=== PATIENT | male | born 1960 | race Two or more races ===

== ENCOUNTER 2024-07-23 09:41 | Emergency (ER) | payer OTHER ==
[~2024-07-23] VITALS: Ht 162.6 cm; Wt 65.8 kg
[2024-07-23] MEDS ORDERED: LIPITOR20 MG PO (09:43)
[2024-07-23] MEDS ORDERED: ALTACE2.5 MG (09:43)
[2024-07-23 09:45] VITALS: BP 148/86; O2SAT 96
[2024-07-23] MEDS ORDERED: KETOROLAC TROMETHAMINE 60 MG VIAL IM ONE (10:15)
[2024-07-23] MEDS ORDERED: BENZONATATE 200 MG CAPSULE PO ONE (10:15)
[2024-07-23] MEDS ORDERED: LEVALBUTER0.63 MG/3 IH (11:42)
[2024-07-23] MEDS ORDERED: PROAIR RESPICL90 MCG IH (11:42)
[2024-07-23] MEDS ORDERED: MONTELUKAST SODI4 M1 PO (11:42)
[2024-07-23] MEDS ORDERED: BENZONATATE200 M1 PO (11:42)
[2024-07-23] MEDS ORDERED: KETO10TA2 PO (11:42)
== END 2024-07-23 12:02 | disposition home or self-care (01) ==
LOC: ER 09:43
DX: M94.0 Chondrocostal junction syndrome [Tietze] (principal); Z91.013 Allergy to seafood; Z88.0 Allergy status to penicillin; J45.909 Unspecified asthma, uncomplicated; I10 Essential (primary) hypertension
CPT/HCPCS: 71045; 96372; 99283; J1885